=== PATIENT | male | born 1940 | race Caucasian/White ===

== ENCOUNTER 2016-10-10 09:42 | Outpatient (CLI) | payer MEDICARE, OTHER | END 2016-10-10 09:43 | disposition home or self-care (01) | DX: J44.9 Chronic obstructive pulmonary disease, unspecified (principal); R05 Cough; Z95.0 Presence of cardiac pacemaker ==

== ENCOUNTER 2016-10-11 07:08 | Outpatient (CLI) | payer MEDICARE, OTHER | END 2016-10-11 07:09 | disposition home or self-care (01) | DX: N18.9 Chronic kidney disease, unspecified (principal); R94.5 Abnormal results of liver function studies; D64.9 Anemia, unspecified; E03.9 Hypothyroidism, unspecified ==

== ENCOUNTER 2016-10-16 07:13 | Outpatient (CLI) | payer MEDICARE, OTHER | END 2016-10-16 07:14 | disposition home or self-care (01) | DX: D64.9 Anemia, unspecified (principal) ==

== ENCOUNTER 2017-03-14 09:36 | Outpatient (CLI) | payer MEDICARE, OTHER ==
[2017-03-14 12:07] LABS: BILIRUBIN,URINE NEGATIVE (NEGATIVE); PH,URINE 5.5 PH (5.0-7.5)
[2017-03-14 12:12] LABS: UA CHARGE (STRIP ONLY) YES; UR CULTURE IF IND NOT INDICATED
[2017-03-14 12:13] LABS: ALBUMIN/GLOBULIN RATIO 0.9 (1.0-2.2); BILIRUBIN,TOTAL 0.6 mg/dL (0.2-1.0); CALCIUM 9.4 mg/dL (8.5-10.3); CREATININE 1.5 mg/dL (0.6-1.2); POTASSIUM 4.8 mmol/L (3.5-5.0); TOTAL PROTEIN 7.6 g/dL (6.7-8.2)
[2017-03-14 12:33] LABS: HEMOGLOBIN A1C 0.63 g/dL
== END 2017-03-14 09:37 | disposition home or self-care (01) ==
LOC: LAB.R 09:36
PROVIDERS: ATTEND Physician Assistant Medical
DX: E11.9 Type 2 diabetes mellitus without complications (principal); Z79.899 Other long term (current) drug therapy
CPT/HCPCS: 80053; 81001; 81003; 83036; 84443; 87086

== ENCOUNTER 2017-03-18 10:53 | Outpatient (CLI) | payer MEDICARE, OTHER ==
[2017-03-18] MEDS ORDERED: IOPAMIDOL-300 100 ML VIAL IVP ONE (13:54)
[2017-03-18] MEDS ORDERED: IOPAMIDOL-300 50 ML VIAL PO ONE (13:54)
--- NOTE | 2017-03-18 17:11 | CT Report ---
CT OF THE CHEST WITHOUT CONTRAST: 03/18/2017 CLINICAL INDICATION: COPD. TECHNIQUE: Axial CT images of the chest were obtained without intravenous contrast, as requested. COMPARISON: Previous chest CT of 09/22/2015. FINDINGS: The heart and great vessels demonstrate atherosclerotic calcifications. No hilar or medias tinal lymphadenopathy is present. The lungs demonstrate extensive emphysema. No suspicious pulmonary nodule or mass lesion is seen. No effusion or pneumothorax is present. The osseous structures demonst rate degenerative changes. IMPRESSION: EMPHYSEMA. NO PULMONARY MASS IS IDENTIFIED. In accordance with CT protocol optimization, one or more of the following dose reduction techniques w ere utilized for this exam: automated exposure control, adjustment of mA and/or KV based on patient size, or use of iterative reconstructive technique. JOB #: [id number] EXT JOB #:[id number]
--- NOTE | 2017-03-18 17:16 | CT Report ---
CT OF THE ABDOMEN AND PELVIS WITH CONTRAST: 03/18/2017 CLINICAL INDICATION: Weight loss. TECHNIQUE: Axial CT images of the abdomen and pelvis were obtained with 50 mL of Isovue-300 intraveno usly, due to patient's renal insufficiency. No previous CT is available for comparison. FINDINGS: Limited evaluation of the lung bases demonstrates emphysema and a small hiatal hernia. ABDOMEN: The liver, spleen, pancreas, kidneys and adrenal glands are unremarkable. The gallbladder is not dilated. No bowel dilatation, free gas, or free fluid is present. No abdominal adenopathy is see n. PELVIS: Sigmoid diverticulosis is present, without CT evidence of diverticulitis. A reservoir for a p enile implant is noted in the right lower pelvis. No pelvic adenopathy or free fluid is present. The appendix is seen in the right lower quadrant, and is normal in caliber. The osseous structures demonstrate degenerative changes. IMPRESSION: NO EVIDENT ETIOLOGY FOR PATIENT'S WEIGHT LOSS. In accordance with CT protocol optimization, one or more of the following dose reduction techniques w ere utilized for this exam: automated exposure control, adjustment of mA and/or KV based on patient size, or use of iterative reconstructive technique. JOB #: [id number] EXT JOB #:[id number]
== END 2017-03-18 10:54 | disposition home or self-care (01) ==
LOC: DI 10:53
PROVIDERS: ATTEND Physician Assistant Medical
DX: J43.9 Emphysema, unspecified (principal)
CPT/HCPCS: 71250; 74177; Q9967

== ENCOUNTER 2017-07-28 11:45 | Outpatient (CLI) | payer MEDICARE, OTHER | END 2017-07-28 11:46 | disposition short-term general hospital (02) | LOC: EMS 11:45 | PROVIDERS: ATTEND Surgery | DX: R55 Syncope and collapse (principal) | CPT/HCPCS: A0425; A0427 ==

== ENCOUNTER 2017-08-06 07:09 | Outpatient (CLI) | payer MEDICARE, OTHER ==
[2017-08-06 11:57] LABS: ALBUMIN/GLOBULIN RATIO 0.8 (1.0-2.2); BILIRUBIN,TOTAL 0.6 mg/dL (0.2-1.0); CALCIUM 8.9 mg/dL (8.5-10.3); CREATININE 1.7 mg/dL (0.6-1.2); TOTAL PROTEIN 7.2 g/dL (6.7-8.2)
[2017-08-06 12:13] LABS: HEMOGLOBIN A1C 0.55 g/dL
== END 2017-08-06 07:10 | disposition home or self-care (01) ==
LOC: LAB.F 07:09
PROVIDERS: ATTEND Physician Assistant Medical
DX: D64.9 Anemia, unspecified (principal); E11.9 Type 2 diabetes mellitus without complications
CPT/HCPCS: 80053; 83036

== ENCOUNTER 2018-02-25 08:00 | Outpatient (CLI) | payer MEDICARE, OTHER ==
[2018-02-25 12:15] LABS: CALCIUM 8.9 mg/dL (8.5-10.3); CREATININE 1.6 mg/dL (0.6-1.2)
[2018-02-25 12:19] LABS: HB2 TOTAL 14.3 g/dL; HEMOGLOBIN A1C 0.53 g/dL; HEMOGLOBIN A1C % 5.5 % (4.6-6.2)
== END 2018-02-25 08:01 | disposition home or self-care (01) ==
LOC: LAB.F 08:00
PROVIDERS: ATTEND Physician Assistant Medical
DX: E11.9 Type 2 diabetes mellitus without complications (principal); N18.9 Chronic kidney disease, unspecified
CPT/HCPCS: 36415; 80048; 83036

== ENCOUNTER 2018-03-10 08:00 | Outpatient (CLI) | END 2018-03-10 08:01 | disposition home or self-care (01) ==

== ENCOUNTER 2018-03-10 09:39 | Outpatient (CLI) | payer MEDICARE, OTHER ==
--- NOTE | 2018-03-10 10:12 | XRAY Report ---
Procedure Date: 03/10/2018 Accession Number: [id number] / [id number] Procedure: XR - Chest 2 View X-Ray CPT Code: 75695 FULL RESULT: EXAM: Chest 2 View X-Ray DATE: 03/10/2018 10:07 AM CLINICAL HISTORY: COPD STAGE 3 SEVERE COMPARISON: CT 03/18/2017, 2 view chest 10/10/2016 TECHNIQUE: 2 views. FINDINGS: Lungs/Pleura: The lungs remain hyperinflated, compatible with COPD. No new consolidation, effusion, or pneumothorax. Mediastinum: No cardiomegaly. Stable left subclavian pacemaker/AICD. Other: None. IMPRESSION: Stable COPD. No evidence of acute cardiopulmonary disease. [facility]
== END 2018-03-10 09:40 | disposition home or self-care (01) ==
LOC: DI 09:39
PROVIDERS: ATTEND Physician Assistant Medical
DX: J44.9 Chronic obstructive pulmonary disease, unspecified (principal); E11.22 Type 2 diabetes mellitus with diabetic chronic kidney disease; N18.9 Chronic kidney disease, unspecified
CPT/HCPCS: 71046; 81001; 81003; 82043; 87086

== ENCOUNTER 2018-07-01 07:15 | Outpatient (CLI) | payer MEDICARE, OTHER ==
[2018-07-01 11:38] LABS: HB2 TOTAL 13.6 g/dL; HEMOGLOBIN A1C 0.53 g/dL; HEMOGLOBIN A1C % 5.7 % (4.6-6.2)
[2018-07-01 11:39] LABS: ALBUMIN 3.7 g/dL (3.2-5.5); ALBUMIN/GLOBULIN RATIO 1.1 (1.0-2.2); BILIRUBIN,TOTAL 0.9 mg/dL (0.2-1.0); CREATININE 1.4 mg/dL (0.6-1.2); TOTAL PROTEIN 7.2 g/dL (6.7-8.2)
== END 2018-07-01 07:16 | disposition home or self-care (01) ==
LOC: LAB.F 07:15
PROVIDERS: ATTEND Physician Assistant Medical
DX: E11.22 Type 2 diabetes mellitus with diabetic chronic kidney disease (principal); N18.9 Chronic kidney disease, unspecified; Z79.899 Other long term (current) drug therapy
CPT/HCPCS: 36415; 80053; 83036

== ENCOUNTER 2018-10-07 07:05 | Outpatient (CLI) | payer MEDICARE, OTHER ==
[2018-10-07 11:31] LABS: HB2 TOTAL 14.3 g/dL; HEMOGLOBIN A1C 0.6 g/dL
== END 2018-10-07 07:06 | disposition home or self-care (01) ==
LOC: LAB.F 07:05
PROVIDERS: ATTEND Physician Assistant Medical
DX: N18.9 Chronic kidney disease, unspecified (principal); Z79.899 Other long term (current) drug therapy; E11.9 Type 2 diabetes mellitus without complications
CPT/HCPCS: 36415; 83036

== ENCOUNTER 2019-02-23 14:29 | Emergency (ER) | payer MEDICARE, OTHER ==
[2019-02-23 14:38] VITALS: BP 143/81
[2019-02-23] MEDS ORDERED: BUFFERED LIDOCAINE 10 ML SYRINGE SUBQ STA (15:00)
[2019-02-23] MEDS ORDERED: TETANUS/DIPHTHERIA/PERTUSSIS 0.5 ML SYRINGE IM ONE (15:00)
--- NOTE | 2019-02-23 15:01 | ED Physician Documentation ---
PD HPI UPPER EXT INJURY - Stated complaint Stated Complaint: L ARM LAC - Chief complaint Chief Complaint: Laceration - History obtained from History obtained from: Patient - History of Present Illness Location: Left (78-year-old gentleman with unknown tetanus status slipped and fell and lacerated on a branch at home just prior to arrival. Its on the left forearm. Pain is minimal.) Review of Systems Constitutional: reports: Reviewed and negative Cardiac: reports: Reviewed and negative Respiratory: reports: Reviewed and negative PD PAST MEDICAL HISTORY - Past Medical History Cardiovascular: Atrial fibrillation Respiratory: Emphysema, Shortness of breath Endocrine/Autoimmune: Type 2 diabetes GI: None : None HEENT: None Psych: None Musculoskeletal: None Derm: None - Past Surgical History General: Colonoscopy Cardiovascular: Coronary stent, AICD, Cardiac catheterization HEENT: Cataracts - Present Medications Home Medications: Ambulatory Orders Medication Instructions Recorded Confirmed Albuterol 3 mg IH TID 05/15/16 08/27/18 Amiodarone [Pacerone] 200 mg PO BID 05/15/16 08/27/18 Atorvastatin Calcium [Lipitor] 500 mg PO DAILY 05/15/16 08/27/18 Ipratropium/Albuterol Sulfate 3 mg IH DAILY 05/15/16 08/27/18 [Combivent Respimat Inhal [place]] Levothyroxine [Synthroid] 50 mg PO DAILY 05/15/16 08/27/18 Losartan Potassium 25 mg PO DAILY 05/15/16 08/27/18 Sodium Chloride 1 gm PO DAILY 05/15/16 08/27/18 Budesonide/Formoterol Fumarate 80 mcg PO DAILY 06/06/16 08/27/18 [Symbicort 80-4.5 Mcg Inhaler] Aspirin 81 mg PO DAILY 12/05/16 08/27/18 Glimepiride 2 tab PO DAILY 04/24/17 08/27/18 - Allergies Allergies/Adverse Reactions: Allergies Allergy/AdvReac Type Severity Reaction Status Date / Time No Known Drug Allergies Allergy Verified 02/23/19 14:38 PD ED PE NORMAL - Vitals Vital signs reviewed: Yes - General General: Alert and oriented X 3, No acute distress - Extremities Extremities: Other (On the mid dorsal left forearm there is a shallow L-shaped laceration measuring 4 cm) - Neuro Neuro: Alert and oriented X 3, Normal speech Results - Vitals Vitals: Vital Signs - 24 hr 02/23/19 14:35 Temperature 36.8 C Heart Rate 88 Respiratory 16 Rate Blood Pressure 143/81 H O2 Saturation 96 Oxygen O2 Source Room air Procedures - Laceration (location) L forearm Length in cm: 6 Wound type: Curved, Superficial, Into subcut fat Neurovascular status: Sensory intact, Motor intact, Vascular intact Anesthesia: Lidocaine 1%, With bicarb Wound Preparation: Irrigated copiously NS, Debrided moderately Skin layer closure: Nylon, Size #-0 - enter number (4-0), Other (mostly horizontal mattress sutures because his skin was quite thin and was tearing easily.) Complexity: Simple Departure - Departure Disposition: 01 Home, Self Care Clinical Impression: Laceration Condition: Good Record reviewed to determine appropriate education?: Yes Instructions: ED Laceration All Comments: Come back for any signs of infection which would include: Redness, swelling, drainage, increased pain, or fevers. You can wash it soap and water. Keep it covered and moist with bacitracin ointment which is available over the counter; avoid neosporin. Follow-up with your physician in 14 days for suture removal.
== END 2019-02-23 15:44 | disposition home or self-care (01) ==
LOC: ED 14:29
DX: S51.812A Laceration without foreign body of left forearm, initial encounter (principal); W01.198A Fall on same level from slipping, tripping and stumbling with subsequent striking against other object, initial encounter; Y93.H2 Activity, gardening and landscaping; Y92.007 Garden or yard of unspecified non-institutional (private) residence as the place of occurrence of the external cause; Z23 Encounter for immunization; E11.9 Type 2 diabetes mellitus without complications; Z79.84 Long term (current) use of oral hypoglycemic drugs; Z79.82 Long term (current) use of aspirin
CPT/HCPCS: 12002; 90471; 99282

== ENCOUNTER 2019-08-03 10:14 | Outpatient (CLI) | payer MEDICARE, OTHER ==
--- NOTE | 2019-08-03 14:37 | XRAY Report ---
Reason: ORTHOPNEA, RESP FAILURE Procedure Date: 08/03/2019 Accession Number: [id number] / [id number] Procedure: XRS - Chest 2 View X-Ray CPT Code: 83597 Final Report FULL RESULT: EXAM: CHEST RADIOGRAPHY EXAM DATE: 08/03/2019 10:51 AM. CLINICAL HISTORY: Orthopnea, respiratory failure. COMPARISON: CHEST 2 VIEW 03/10/2018 10:02 AM. TECHNIQUE: 2 views. FINDINGS: Lungs/Pleura: No focal opacities evident. No pleural effusion. No pneumothorax. High lung volumes with flattened diaphragms, can be seen with obstructive lung disease. Mediastinum: Heart and mediastinal contours are unremarkable. Other: Redemonstration of single lead AICD. IMPRESSION: No acute airspace disease is detected. Lung volumes and flattened diaphragms are suggestive of obstructive lung disease such as emphysema. [facility]
[2019-08-03 17:17] LABS: HGB - HEMOGLOBIN 11.7 g/dL (14.0-18.0); MEAN CORPUSCULAR HEMOGLOBIN 33.6 pg (27.0-31.0); MEAN CORPUSCULAR VOLUME 108.3 fL (80.0-94.0); MEAN PLATELET VOLUME 9.8 fL (7.4-11.4); RED BLOOD COUNT 3.48 10^6/uL (4.70-6.10); RED CELL DISTRIBUTION WIDTH 14.9 % (12.0-15.0); WHITE BLOOD COUNT 8.7 x10^3/uL (4.8-10.8)
[2019-08-03 17:38] LABS: HB2 TOTAL 11.8 g/dL; HEMOGLOBIN A1C 0.58 g/dL; HEMOGLOBIN A1C % 6.6 % (4.6-6.2)
[2019-08-03 17:40] LABS: ALBUMIN 3.6 g/dL (3.2-5.5); ALBUMIN/GLOBULIN RATIO 0.9 (1.0-2.2); ALKALINE PHOSPHATASE 58 IU/L (42-121); ALT ALANINE AMINOTRANSFERASE 18 IU/L (10-60); AST ASPARTATE AMINOTRANSFERASE 25 IU/L (10-42); BILIRUBIN,TOTAL 0.9 mg/dL (0.2-1.0); BUN - BLOOD UREA NITROGEN 27 mg/dL (6-20); CARBON DIOXIDE - CO2 24 mmol/L (21-32); CHLORIDE 105 mmol/L (101-111); CHOL/HDL RATIO 4.1 (<5.0); CHOLESTEROL 223 mg/dL; CREATININE 1.9 mg/dL (0.6-1.2); GFR - MDRD 34 (>89); GLUCOSE 92 mg/dL (70-100); HDL CHOLESTEROL 54 mg/dL; LDL CHOLESTEROL,CALCULATED 150 mg/dL; LDL/HDL RATIO 2.8 (<3.6); SODIUM 137 mmol/L (135-145); TOTAL PROTEIN 7.5 g/dL (6.7-8.2); VLDL CHOLESTEROL 19 mg/dL
== END 2019-08-03 10:15 | disposition home or self-care (01) ==
LOC: DI.S 10:14
PROVIDERS: ATTEND Family Medicine
DX: J96.10 Chronic respiratory failure, unspecified whether with hypoxia or hypercapnia (principal); J44.9 Chronic obstructive pulmonary disease, unspecified; E03.9 Hypothyroidism, unspecified; E78.5 Hyperlipidemia, unspecified; R73.02 Impaired glucose tolerance (oral)
CPT/HCPCS: 36415; 71046; 80053; 80061; 83036; 83721; 84443; 85027

== ENCOUNTER 2019-09-22 16:24 | Outpatient (CLI) | payer MEDICARE, OTHER ==
[2019-09-22 16:40] LABS: BASOPHILS # (AUTO) 0.1 10^3/uL (0.0-0.1); BASOPHILS % (AUTO) 0.5 %; EOSINOPHILS # (AUTO) 0.5 10^3/uL (0.0-0.7); EOSINOPHILS % (AUTO) 3.3 %; HGB - HEMOGLOBIN 12.5 g/dL (14.0-18.0); LYMPHOCYTES # (AUTO) 1.5 10^3/uL (1.5-3.5); MEAN CORPUSCULAR HEMOGLOBIN 33.6 pg (27.0-31.0); MEAN CORPUSCULAR HGB CONC 31.4 g/dL (32.0-36.0); MONOCYTES # (AUTO) 1.5 10^3/uL (0.0-1.0); MONOCYTES % (AUTO) 11.1 %; NEUTROPHILS # (AUTO) 9.8 10^3/uL (1.5-6.6); NEUTROPHILS % (AUTO) 73.1 %; PLT - PLATELET COUNT 427 10^3/uL (130-450); RED BLOOD COUNT 3.72 10^6/uL (4.70-6.10); RED CELL DISTRIBUTION WIDTH 14.2 % (12.0-15.0); WHITE BLOOD COUNT 13.5 x10^3/uL (4.8-10.8)
[2019-09-22 16:48] LABS: CALCIUM 8.9 mg/dL (8.5-10.3); CREATININE 2.5 mg/dL (0.6-1.2)
[2019-09-22 16:52] LABS: BILIRUBIN,URINE NEGATIVE (NEGATIVE); GLUCOSE, URINE (UA) NEGATIVE (NEGATIVE); KETONES,URINE (UA) NEGATIVE (NEGATIVE); LEUKOCYTE ESTERASE, URINE NEGATIVE (NEGATIVE); NITRITE,URINE NEGATIVE (NEGATIVE); OCCULT BLOOD,URINE NEGATIVE (NEGATIVE); PH,URINE 5.5 PH (5.0-7.5); PROTEIN,URINE TRACE mg/dL (NEGATIVE); UROBILINOGEN,URINE 0.2 (NORMAL) E.U./dL (NORMAL)
[2019-09-22 17:04] LABS: CLARITY,URINE CLEAR (CLEAR)
== END 2019-09-22 16:25 | disposition home or self-care (01) ==
LOC: LAB 16:24
PROVIDERS: ATTEND Family Medicine
DX: R10.9 Unspecified abdominal pain (principal)
CPT/HCPCS: 36415; 80048; 81001; 81003; 85025; 87086

== ENCOUNTER 2019-10-08 08:50 | Outpatient (CLI) | payer MEDICARE, OTHER ==
[2019-10-08 18:44] LABS: CALCIUM 9.2 mg/dL (8.5-10.3); CREATININE 1.9 mg/dL (0.6-1.2)
== END 2019-10-08 08:51 | disposition home or self-care (01) ==
LOC: LAB.S 08:50
PROVIDERS: ATTEND Family Medicine
DX: N18.3 Chronic kidney disease, stage 3 (moderate) (principal); Z79.899 Other long term (current) drug therapy
CPT/HCPCS: 36415; 80048

== ENCOUNTER 2019-11-30 09:14 | Outpatient (CLI) | payer MEDICARE, OTHER ==
[2019-11-30 09:36] LABS: BASOPHILS # (AUTO) 0.1 10^3/uL (0.0-0.1); BASOPHILS % (AUTO) 0.9 %; EOSINOPHILS # (AUTO) 0.4 10^3/uL (0.0-0.7); EOSINOPHILS % (AUTO) 3.5 %; HGB - HEMOGLOBIN 11.5 g/dL (14.0-18.0); LYMPHOCYTES # (AUTO) 1.7 10^3/uL (1.5-3.5); MEAN CORPUSCULAR HEMOGLOBIN 32.2 pg (27.0-31.0); MEAN CORPUSCULAR HGB CONC 30.4 g/dL (32.0-36.0); MEAN CORPUSCULAR VOLUME 105.9 fL (80.0-94.0); MEAN PLATELET VOLUME 9.2 fL (7.4-11.4); MONOCYTES # (AUTO) 0.9 10^3/uL (0.0-1.0); MONOCYTES % (AUTO) 9.1 %; NEUTROPHILS # (AUTO) 7.2 10^3/uL (1.5-6.6); NEUTROPHILS % (AUTO) 69.8 %; PLT - PLATELET COUNT 329 10^3/uL (130-450); RED BLOOD COUNT 3.57 10^6/uL (4.70-6.10); RED CELL DISTRIBUTION WIDTH 14.8 % (12.0-15.0); WHITE BLOOD COUNT 10.3 x10^3/uL (4.8-10.8)
[2019-11-30 09:51] LABS: ALBUMIN 3.6 g/dL (3.2-5.5); ALBUMIN/GLOBULIN RATIO 0.9 (1.0-2.2); BILIRUBIN,TOTAL 0.5 mg/dL (0.2-1.0); CALCIUM 9.1 mg/dL (8.5-10.3); CREATININE 1.9 mg/dL (0.6-1.2); TOTAL PROTEIN 7.8 g/dL (6.7-8.2)
[2019-11-30 10:36] LABS: THYROID STIMULATING HORMONE 6.09 uIU/mL (0.34-5.60)
[2019-11-30 10:38] LABS: FREE T4 (FREE THYROXINE) 1.39 ng/dL (0.58-1.64)
== END 2019-11-30 09:15 | disposition home or self-care (01) ==
LOC: LAB 09:14
PROVIDERS: ATTEND Family Medicine
DX: I95.9 Hypotension, unspecified (principal); N18.3 Chronic kidney disease, stage 3 (moderate); J96.10 Chronic respiratory failure, unspecified whether with hypoxia or hypercapnia; E78.5 Hyperlipidemia, unspecified; E03.9 Hypothyroidism, unspecified
CPT/HCPCS: 36415; 80053; 84439; 84443; 84481; 85025